=== PATIENT | female | born 1990 | race African-American/Black ===

== ENCOUNTER 2022-01-03 23:28 | Emergency (ER) | payer OTHER ==
[~2022-01-03] VITALS: Ht 165.1 cm; Wt 79.4 kg
[2022-01-04 00:06] VITALS: BP_SYST 109
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
--- NOTE | 2022-01-04 00:13 | NUR ---
Patient triaged and placed in waiting room. VSS and patient appears in no acute distress at this time. Accompanied by self, awaiting available bed, and MD notified of need for MSE.
--- NOTE | 2022-01-04 01:12 | NUR ---
Patient to ER CHAIR for evaluation.
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
--- NOTE | 2022-01-04 01:22 | NUR ---
ER at bedside examining patient.
[2022-01-04 01:27] VITALS: BP_SYST 112
[2022-01-04] MEDS ORDERED: AMOX-423 PO (01:27)
--- NOTE | 2022-01-04 01:27 | NUR ---
Patient given written and verbal discharge instructions and verbalizes understanding. ER MD discussed with patient the results and treatment provided. Patient in stable condition. ID arm band removed. Rx of AUGMENTIN given. Patient educated on pain management and to follow up with PMD. Pain Scale 0/10 Opportunity for questions provided and answered. Medication side effect fact sheet provided.
== END 2022-01-04 01:27 | disposition home or self-care (01) ==
LOC: SED 23:28
DX: S01.511A Laceration without foreign body of lip, initial encounter (principal); Y04.2XXA Assault by strike against or bumped into by another person, initial encounter; Y93.89 Activity, other specified; Y92.89 Other specified places as the place of occurrence of the external cause; Y99.8 Other external cause status
CPT/HCPCS: 99283